=== PATIENT | male | born 1975 | race Caucasian/White ===

== ENCOUNTER 2016-10-15 15:05 | Outpatient (CLI) | payer OTHER ==
--- NOTE | 2016-10-15 15:35 | DIAGNOSTIC IMAGING REPORT ---
PROCEDURE: XR CHEST 2 VIEW INDICATION: PRE OP TECHNIQUE: PA and lateral views. COMPARISON: None. FINDINGS: Lungs are clear. Heart and mediastinum are normal. Thorax is normal. IMPRESSION: 1. Negative chest.
== END 2016-10-15 23:00 ==
LOC: RT SRH 15:05
DX: Z01.811 Encounter for preprocedural respiratory examination (principal); Z01.810 Encounter for preprocedural cardiovascular examination

== ENCOUNTER 2016-10-17 07:09 | Day surgery (SDC) | payer OTHER ==
--- NOTE | 2016-10-17 08:04 | Preoperative Progress Note ---
Preop Note Details Current Status: No Changes Physical Exam: No Changes Necessity: Still desired/necessary Other: CV Reviewed, Respiratory Reviewed, Review AGUS notes & Vitals
--- NOTE | 2016-10-17 08:04 | Preoperative Progress Note ---
Preop Note Details Current Status: No Changes Physical Exam: No Changes Necessity: Still desired/necessary Other: CV Reviewed, Respiratory Reviewed, Review AGUS notes & Vitals
--- NOTE | 2016-10-17 09:48 | Provider's Discharge Care Plan ---
Problem, Goal, Plan Problem List 1. Tears of meniscus and anterior cruciate ligament of left knee Goals: Improve function, Improved health/wellness, Increase independence Instructions: Follow up as directed, Increase activity level, Take meds as directed 2. Tear of medial meniscus of left knee
[2016-10-17] MEDS ORDERED: NORCO1 TA1 PO (09:54)
--- NOTE | 2016-10-17 11:03 | Postoperative Progress Note ---
Postop Progress Note Preoperate Diagnosis: LEFT MEDIAL MENISCUS AND ACL TEARS Postoperative Diagnosis: Same Surgeon: ROXANNE GARCIA MD Anesthesia: General ETT Findings: See dictation Procedure: Athroscopic L partial medial menisectomy and debridement of ACL tear Complications? No Condition: Stable EBL: <5 mL Blood Administered: None Specimen(s) removed? No Grafts or Implants? No . (See nursing notes for details of grafts/implants)
[2016-10-17 12:08] VITALS: BP 114/77
--- NOTE | 2016-10-17 15:00 | OPERATIVE REPORT ---
DATE OF SURGERY: 10/17/2016 SURGEON: Dilan Tracey MD PREOPERATIVE DIAGNOSIS: 1. Left medial meniscus tear and anterior cruciate ligament tear POSTOPERATIVE DIAGNOSIS: 1. Left medial meniscus tear and anterior cruciate ligament tear PROCEDURES PERFORMED: 1. Exam under anesthesia 2. Diagnostic arthroscopy 3. Partial right medial meniscectomy with debridement of anterior cruciate ligament torn fibers ANESTHESIA: General. ESTIMATED BLOOD LOSS: Less than 5 mL. FLUIDS: Blood replacement: IV crystalloid fluids only. COMPLICATIONS: None apparent. PATHOLOGY SPECIMEN: None. DRAINS: None. CONDITION: The patient leaving the operating room stable and satisfactory. 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 He was found to have a "minimal nondisplaced undersurface tearing of the mesial aspect of the posterior horn of the medial meniscus with irregularity of the posterior meniscal margin, suggestive of slight meniscal capsular separation, and an abnormally short course of his anterior cruciate ligament" initially. He has gone on to be unable to return to snowboarding due to a shifting sense in his knee when he attempts to turn. The knee also pops and catches; it does not truly lock. A repeat MRI was obtained, which confirmed a complex tear of the posterior horn and body of the medial meniscus and that the anterior cruciate ligament was not inserting appropriately at the femoral origin. He was therefore indicated for the above-listed procedure, hoping to deal with his mechanical symptoms, at least initially, by debriding the meniscal tear and determine if he could return to snowboarding and other high-level activities without anterior cruciate ligament reconstruction, knowing full well that he may need to come back for an anterior cruciate ligament reconstruction with much more extensive rehabilitation if operative findings and postoperative course dictated that. SURGICAL FINDINGS: The knee was stable on varus and valgus stress on exam under anesthesia. It had a positive Jeanne with a soft endpoint and 7 mm translation with a pivot slip, but no true pivot shift. Intra-articular findings showed a mild fraying of the retropatellar articular cartilage, with grade 2 chondral changes in the medial femoral condyle and medial tibial surface. The anterior cruciate ligament was detached from its femoral insertion with a "empty lateral wall sign in the intercondylar notch," after "empty lateral wall sign" in the intercondylar notch. There were fibers of the anterior cruciate ligament which had been balled up and scarred in, in the anterior notch. There was also vertical longitudinal split tearing of the anterior cruciate ligament. The lateral meniscus, popliteus tendon, lateral compartment were all seen to be intact, without any loose bodies or instability on the meniscal side. SURGICAL TECHNIQUE: The patient was identified in the preoperative holding area. Further questions were invited and answered to his satisfaction. We reviewed the consent form. I signed his knee with my initials and his consent. He was seen and interviewed by Anesthesia and nursing team members and brought back to operating room #2 at [facility]. General anesthesia was administered, along with 2 grams of cefazolin intravenously. Pneumatic compression device was working on the nonoperative leg throughout the patient's time in the operating room for thromboembolic prophylaxis. A tourniquet was placed high on the operative thigh, about stockinette padding, and isolated off with plastic adhesive U-drape. The knee was examined under anesthesia, with the above-noted findings. The operative team paused to review the patient, confirming we had the correct patient, operative site, and procedure, appropriate availability of instruments, and that the patient had no known drug allergies, and perioperative antibiotics and thromboembolic prophylaxis had occurred as described above. Everyone in the room, including surgical nursing and anesthetic team members, agreed that we should proceed. The leg was circumferentially prepped with ChloraPrep and in sterile fashion, with a tourniquet to the tips of toes, draped free in a waterproof sterile fashion for arthroscopy. The knee was inflated with 0.25% Marcaine via superolateral portal position, which was then established with an 11 blade scalpel for outflow. Knee was flexed , and an anterolateral portal was established for the arthroscope. The knee was systematically examined, beginning in the suprapatellar pouch and patellofemoral compartment, medial gutter, and medial compartment, with the above-noted findings of a complex tear of the posterior horn and body of the medial meniscus, with part of the medial meniscus flipped under the anterior portion of the body and into the medial gutter, and part of the posterior portion of the meniscus flipped into the intercondylar notch, attached still to the posterior root of the medial meniscus. An anteromedial portal was established under spinal needle guidance, and these findings were probed and further delineated. The anterior cruciate ligament was examined. It was seen to have a significant number of parallel fibers in the intercondylar notch, but it was detached from the lateral wall of the intercondylar notch. After debriding the torn fibers and anterior to the anterior cruciate ligament, it was better visualized, and Jeanne exam was performed and witnessed through the arthroscope and it was seen that the anterior cruciate ligament did not carry load. Next, the knee was placed into the [id number] position. The lateral compartment was examined. The lateral meniscus was seen to be intact, as was the popliteal tendon. It was probed with a nerve hook and found to be stable. The lateral gutter was then entered in the valgus stress position, and the popliteal tendon was seen to be intact and there were no loose bodies identified in the popliteal tendon sheath. The shaver was used to debride the torn portions of the medial meniscus, including biters for the stouter tissue anteriorly and posteriorly. Shaver was then used to further debride the torn fibers of the anterior cruciate ligament that might be causing mechanical symptoms, but leaving the body of the ligament intact, for whatever proprioceptive value it may have. Once this was completed, the knee was evacuated of instruments and the portals closed with nylon mattress sutures. The knee was reinflated with 0.25% Marcaine with epinephrine and a sterile dressing of Xeroform, 4 x 4's , ABD, Kerlix, and an Isaak wrap was applied. The patient was undraped, reversed from anesthesia and brought to recovery room in stable and satisfactory condition, having tolerated the procedure well without apparent complication. All sponge, needle, instrument counts were reported correct prior to leaving the operating room. Postoperative Plan: The patient will be weightbearing as tolerated, range of motion ad. justus., remove the dressing in 2-3 days' time. May wash with soap and water, blot dry. Do not scrub, do not immerse until return to clinic for suture removal. He will take aspirin 325 mg twice daily for thromboembolic prophylaxis and call or return should he develop any symptoms or signs of infection or thromboembolic disease.
== END 2016-10-17 12:37 | disposition home or self-care (01) ==
LOC: SDC SRH 07:09 → SCU SRH 07:10 → OR SRH 09:00 → SDC SRH 09:00
PROVIDERS: Orthopaedic Surgery
PROC: 0SBD4ZZ Excision of Left Knee Joint, Percutaneous Endoscopic Approach (ICD-10-PCS; principal; 2016-10-17 09:00)
DX: S83.242A Other tear of medial meniscus, current injury, left knee, initial encounter (principal); S83.512A Sprain of anterior cruciate ligament of left knee, initial encounter; X58.XXXA Exposure to other specified factors, initial encounter
CPT/HCPCS: 29240; 50002; 60001; 70002; 80011; 80425; 80575; 82591; 83419; 83774; 84044